=== PATIENT | female | born 1995 | race Caucasian/White ===

== ENCOUNTER 2018-02-16 01:58 | Emergency (ER) | payer BC ==
[~2018-02-16] VITALS: Ht 162.6 cm; Wt 56.4 kg
[2018-02-16 02:00] VITALS: BP 120/81
[2018-02-16] MEDS ORDERED: PREN-3 PO (02:08)
[2018-02-16 02:41] LABS: BASOPHILS # (AUTO) 0.05 x10^3/uL (0-0.1); BASOPHILS % (AUTO) 1 % (0-1); EOSINOPHILS # (AUTO) 0.08 x10^3/uL (0-0.4); EOSINOPHILS % (AUTO) 1 % (1-7); LYMPHOCYTES # (AUTO) 2.02 x10^3/uL (1-3.4); LYMPHOCYTES % (AUTO) 24 % (22-44); MD NO; MEAN CORPUSCULAR HEMOGLOBIN 30.8 pg (27.0-34.8); MEAN CORPUSCULAR VOLUME 90.7 fL (80-100); MEAN PLATELET VOLUME 7.1 fL (7.4-10.4); MONOCYTES # (AUTO) 0.66 x10^3/uL (0.2-0.8); MONOCYTES % (AUTO) 8 % (2-9); NEUTROPHILS # (AUTO) 5.53 x10^3/uL (1.8-6.8); NEUTROPHILS % (AUTO) 66 % (42-75); PLATELET COUNT 270 x10^3/uL (130-400); RED BLOOD COUNT 4.05 x10^6/uL (3.82-5.3); RED CELL DISTRIBUTION WIDTH 13.4 % (9.6-15.2)
[2018-02-16 02:50] LABS: ANION GAP 9 mmol/L (5-15); CALCIUM 8.9 mg/dL (8.5-10.1); CHLORIDE 107 mmol/L (98-107); CREATININE 0.63 mg/dL (0.55-1.02)
[2018-02-16 02:58] LABS: MICROSCOPIC AUTO
[2018-02-16 02:59] LABS: CULTURE INDICATED? YES
== END 2018-02-16 04:01 | disposition home or self-care (01) ==
LOC: ED 03:55
DX: O26.892 Other specified pregnancy related conditions, second trimester (principal); R10.30 Lower abdominal pain, unspecified; R10.2 Pelvic and perineal pain; Z3A.19 19 weeks gestation of pregnancy
CPT/HCPCS: 36415; 76815; 80048; 81001; 82040; 84702; 85025; 87086; 99285

== ENCOUNTER 2018-02-25 21:36 | Emergency (ER) | payer BC ==
[~2018-02-25] VITALS: Ht 162.6 cm; Wt 57.0 kg
[~2018-02-25 21:36] MED LIST: PREN-3 PO
[2018-02-25] MEDS ORDERED: SODIUM CHLORIDE 0.9% 1,000ML IVBOLUS ONE (22:00)
[2018-02-25 22:06] LABS: BASOPHILS # (AUTO) 0.03 x10^3/uL (0-0.1); BASOPHILS % (AUTO) 0 % (0-1); EOSINOPHILS # (AUTO) 0.07 x10^3/uL (0-0.4); EOSINOPHILS % (AUTO) 1 % (1-7); LYMPHOCYTES # (AUTO) 2.16 x10^3/uL (1-3.4); LYMPHOCYTES % (AUTO) 27 % (22-44); MD NO; MEAN CORPUSCULAR HEMOGLOBIN 31.4 pg (27.0-34.8); MEAN CORPUSCULAR HGB CONC 34.5 g/dL (32.4-35.8); MEAN CORPUSCULAR VOLUME 90.9 fL (80-100); MEAN PLATELET VOLUME 7.2 fL (7.4-10.4); MONOCYTES # (AUTO) 0.75 x10^3/uL (0.2-0.8); MONOCYTES % (AUTO) 9 % (2-9); NEUTROPHILS # (AUTO) 5.11 x10^3/uL (1.8-6.8); NEUTROPHILS % (AUTO) 63 % (42-75); PLATELET COUNT 285 x10^3/uL (130-400); RED BLOOD COUNT 3.69 x10^6/uL (3.82-5.3); RED CELL DISTRIBUTION WIDTH 13.7 % (9.6-15.2)
[2018-02-25 22:18] LABS: ALANINE AMINOTRANSFERASE 22 U/L (12-78); ANION GAP 8 mmol/L (5-15); CALCIUM 8.9 mg/dL (8.5-10.1); CHLORIDE 110 mmol/L (98-107); CREATININE 0.53 mg/dL (0.55-1.02)
[2018-02-25 22:20] LABS: ALKALINE PHOSPHATASE 46 U/L (45-117); BILIRUBIN,TOTAL 0.2 mg/dL (0.2-1.0); TOTAL PROTEIN 6.4 g/dL (6.4-8.2)
[2018-02-25 23:44] VITALS: BP 116/71
== END 2018-02-25 23:46 | disposition home or self-care (01) ==
LOC: ED 22:27
DX: O26.892 Other specified pregnancy related conditions, second trimester (principal); R53.1 Weakness; Z3A.20 20 weeks gestation of pregnancy
CPT/HCPCS: 36415; 80053; 85025; 93005; 99285

== ENCOUNTER 2018-03-30 16:49 | Outpatient (CLI) | payer BC ==
[~2018-03-30] VITALS: Ht 160 cm; Wt 59.1 kg
[2018-03-30 17:04] VITALS: BP 125/72
[2018-03-30 17:56] LABS: BASOPHILS # (AUTO) 0.04 x10^3/uL (0-0.1); BASOPHILS % (AUTO) 1 % (0-1); EOSINOPHILS # (AUTO) 0.07 x10^3/uL (0-0.4); EOSINOPHILS % (AUTO) 1 % (1-7); LYMPHOCYTES # (AUTO) 1.52 x10^3/uL (1-3.4); LYMPHOCYTES % (AUTO) 19 % (22-44); MD NO; MEAN CORPUSCULAR HEMOGLOBIN 31.9 pg (27.0-34.8); MEAN CORPUSCULAR HGB CONC 34.8 g/dL (32.4-35.8); MEAN CORPUSCULAR VOLUME 91.6 fL (80-100); MEAN PLATELET VOLUME 6.9 fL (7.4-10.4); MONOCYTES % (AUTO) 9 % (2-9); NEUTROPHILS % (AUTO) 71 % (42-75); PLATELET COUNT 267 x10^3/uL (130-400)
[2018-03-30 18:09] LABS: ALANINE AMINOTRANSFERASE 19 U/L (12-78); ALBUMIN 2.8 g/dL (3.4-5.0); ANION GAP 6 mmol/L (5-15); CALCIUM 8.9 mg/dL (8.5-10.1); CHLORIDE 107 mmol/L (98-107); CREATININE 0.61 mg/dL (0.55-1.02)
[2018-03-30 18:13] LABS: ALKALINE PHOSPHATASE 53 U/L (45-117); BILIRUBIN,TOTAL 0.6 mg/dL (0.2-1.0); TOTAL PROTEIN 6.5 g/dL (6.4-8.2)
[2018-03-30 18:25] LABS: MICROSCOPIC INDICATED
== END 2018-03-30 19:50 | disposition home or self-care (01) ==
LOC: LDOP 16:49
PROVIDERS: ATTEND Obstetrics & Gynecology
DX: O26.892 Other specified pregnancy related conditions, second trimester (principal); M54.5 Low back pain; Z3A.24 24 weeks gestation of pregnancy
CPT/HCPCS: 36415; 59025; 80053; 81001; 85025; 87086; 99211; G0463

== ENCOUNTER 2018-06-02 19:24 | Outpatient (CLI) | payer BC, OTHER ==
[~2018-06-02] VITALS: Ht 162.6 cm; Wt 63.0 kg
[2018-06-02 19:41] LABS: MICROSCOPIC NOT IND
== END 2018-06-02 20:15 | disposition home or self-care (01) ==
LOC: LDOP 19:24
PROVIDERS: ATTEND Obstetrics & Gynecology
DX: O46.93 Antepartum hemorrhage, unspecified, third trimester (principal); Z3A.33 33 weeks gestation of pregnancy
CPT/HCPCS: 59025; 81003; 87086; 99211; G0463

== ENCOUNTER 2018-06-12 17:42 | Emergency (ER) | payer OTHER ==
[~2018-06-12] VITALS: Ht 160 cm; Wt 66.0 kg
[2018-06-12 19:17] LABS: BASOPHILS # (AUTO) 0.04 x10^3/uL (0-0.1); BASOPHILS % (AUTO) 1 % (0-1); EOSINOPHILS # (AUTO) 0.06 x10^3/uL (0-0.4); EOSINOPHILS % (AUTO) 1 % (1-7); LYMPHOCYTES # (AUTO) 1.59 x10^3/uL (1-3.4); LYMPHOCYTES % (AUTO) 25 % (22-44); MD NO; MEAN CORPUSCULAR HEMOGLOBIN 30.7 pg (27.0-34.8); MEAN CORPUSCULAR HGB CONC 33.7 g/dL (32.4-35.8); MEAN CORPUSCULAR VOLUME 91.1 fL (80-100); MEAN PLATELET VOLUME 6.8 fL (7.4-10.4); MONOCYTES # (AUTO) 0.68 x10^3/uL (0.2-0.8); MONOCYTES % (AUTO) 11 % (2-9); NEUTROPHILS # (AUTO) 4.06 x10^3/uL (1.8-6.8); NEUTROPHILS % (AUTO) 63 % (42-75); PLATELET COUNT 232 x10^3/uL (130-400); RED BLOOD COUNT 3.46 x10^6/uL (3.82-5.3); RED CELL DISTRIBUTION WIDTH 14.5 % (9.6-15.2)
[2018-06-12 19:26] LABS: ALANINE AMINOTRANSFERASE 15 U/L (12-78); ALBUMIN 2.5 g/dL (3.4-5.0); ANION GAP 10 mmol/L (5-15); CALCIUM 7.7 mg/dL (8.5-10.1); CHLORIDE 109 mmol/L (98-107); CREATININE 0.72 mg/dL (0.55-1.02)
[2018-06-12 19:30] LABS: ALKALINE PHOSPHATASE 91 U/L (45-117); BILIRUBIN,TOTAL 0.2 mg/dL (0.2-1.0); TOTAL PROTEIN 6.3 g/dL (6.4-8.2); TROPONIN I < 0.015 ng/mL (0.000-0.045)
[2018-06-12] MEDS ORDERED: ONDANSETRON ODT 4 MG PO ONE (19:30)
[2018-06-12] MEDS ORDERED: ONDANSETRON ODT 4 MG ONE (19:31)
[2018-06-12 21:04] VITALS: BP 115/74
== END 2018-06-12 21:06 | disposition home or self-care (01) ==
LOC: ED 19:25
DX: O26.893 Other specified pregnancy related conditions, third trimester (principal); R07.89 Other chest pain; R06.00 Dyspnea, unspecified; Z3A.35 35 weeks gestation of pregnancy
CPT/HCPCS: 36415; 71045; 80053; 83880; 84484; 85025; 85379; 93005; 93970; 99285; Q0162

== ENCOUNTER 2018-07-14 23:35 | Inpatient (IN) | payer OTHER ==
[~2018-07-14] VITALS: Ht 162.6 cm; Wt 65.0 kg
[2018-07-15 00:25] VITALS: BP 116/76
[2018-07-15] MEDS ORDERED: MISOPROSTOL 200 MCG TABLET ONE (00:37)
[2018-07-15] MEDS ORDERED: D5%-LACTATED RINGERS 1,000 ML IV SCH (01:03)
[2018-07-15] MEDS ORDERED: LACTATED RINGERS 1,000 ML IV SCH (01:03)
[2018-07-15] MEDS ORDERED: OXYTOCIN 30U/ 0.9% NaCL 500ML 500 ML IV ONE (01:03)
[2018-07-15] MEDS ORDERED: OXYTOCIN 30U/ 0.9% NaCL 500ML 0 ML ONE (01:15)
[2018-07-15] MEDS ORDERED: FENTANYL PF 100 MCG/2ML ONE (01:17)
[2018-07-15] MEDS ORDERED: FENTANYL/BUPIV./NS/PF 250 ML EPIDCONT SCH (01:19)
[2018-07-15] MEDS ORDERED: FENTANYL PF 100 MCG/2ML IVPush PRN (01:30)
[2018-07-15] MEDS ORDERED: ONDANSETRON 2MG/ML, 2ML IVPush PRN (01:30)
[2018-07-15] MEDS ORDERED: CALCIUM CARBONATE 500 MG TAB.CHEW PO PRN (01:30)
[2018-07-15] MEDS ORDERED: FENTANYL PF 100 MCG/2ML IV PRN (01:30)
[2018-07-15] MEDS ORDERED: FENTANYL PF 500 MCG, BUPIVACAINE/PF 0.5%, 30ML 62.5 ML in SODIUM CHLORIDE 0.9% 177.5 ML EPIDCONT SCH (01:30)
[2018-07-15] MEDS ORDERED: LIDOCAINE 1%, 50ML INFIL ONE (01:30)
[2018-07-15 01:36] LABS: BASOPHILS # (AUTO) 0.03 x10^3/uL (0-0.1); BASOPHILS % (AUTO) 1 % (0-1); EOSINOPHILS # (AUTO) 0.04 x10^3/uL (0-0.4); EOSINOPHILS % (AUTO) 1 % (1-7); LYMPHOCYTES # (AUTO) 1.73 x10^3/uL (1-3.4); LYMPHOCYTES % (AUTO) 23 % (22-44); MD NO; MEAN CORPUSCULAR HEMOGLOBIN 30.2 pg (27.0-34.8); MEAN CORPUSCULAR HGB CONC 33.9 g/dL (32.4-35.8); MEAN PLATELET VOLUME 6.9 fL (7.4-10.4); MONOCYTES # (AUTO) 0.72 x10^3/uL (0.2-0.8); MONOCYTES % (AUTO) 10 % (2-9); NEUTROPHILS # (AUTO) 4.99 x10^3/uL (1.8-6.8); NEUTROPHILS % (AUTO) 66 % (42-75); PLATELET COUNT 215 x10^3/uL (130-400); RED BLOOD COUNT 3.44 x10^6/uL (3.82-5.3); RED CELL DISTRIBUTION WIDTH 14.6 % (9.6-15.2)
[2018-07-15 08:36] VITALS: BP 126/87
== END 2018-07-15 10:00 | disposition home or self-care (01) | DRG 833 ==
LOC: LDOP 23:35 → LDIP 07-15 01:04
PROVIDERS: ADMIT Obstetrics & Gynecology; ATTEND Obstetrics & Gynecology
DX: O26.893 Other specified pregnancy related conditions, third trimester (principal); E16.2 Hypoglycemia, unspecified; Z3A.39 39 weeks gestation of pregnancy
CPT/HCPCS: 36415; 85025; 86850; 86900; G0378; J3010; J7120

== ENCOUNTER 2018-07-16 05:32 | Inpatient (IN) | payer OTHER ==
[~2018-07-16] VITALS: Ht 162.6 cm; Wt 65.0 kg
[2018-07-16] MEDS ORDERED: PROMETHAZINE 25 MG/ML, 1ML ONE (06:00)
[2018-07-16] MEDS ORDERED: PROMETHAZINE 25 MG/ML, 1ML IM ONE (06:00)
[2018-07-16] MEDS ORDERED: MEPERIDINE/PF 50 MG/ML ONE (06:00)
[2018-07-16] MEDS: MEPERIDINE/PF 50 MG/ML IM PRN (06:06)
[2018-07-16 06:09] VITALS: BP 140/99
[2018-07-16] MEDS ORDERED: OXYTOCIN 30U/ 0.9% NaCL 500ML 500 ML IV ONE (07:17)
[2018-07-16] MEDS ORDERED: D5%-LACTATED RINGERS 1,000 ML IV SCH (07:17)
[2018-07-16] MEDS ORDERED: NEWBORN KIT ONE (07:27)
[2018-07-16] MEDS ORDERED: OXYTOCIN 30U/ 0.9% NaCL 500ML 500 ML ONE (07:28)
[2018-07-16] MEDS ORDERED: TERBUTALINE 1 MG/ML, 1ML IVPush PRN (07:30)
[2018-07-16] MEDS ORDERED: ONDANSETRON 2MG/ML, 2ML IVPush PRN (07:30)
[2018-07-16] MEDS ORDERED: FENTANYL PF 100 MCG/2ML IV PRN (07:30)
[2018-07-16] MEDS ORDERED: FENTANYL PF 100 MCG/2ML IVPush PRN (07:30)
[2018-07-16 07:43] LABS: BASOPHILS # (AUTO) 0.04 x10^3/uL (0-0.1); BASOPHILS % (AUTO) 1 % (0-1); EOSINOPHILS # (AUTO) 0.03 x10^3/uL (0-0.4); EOSINOPHILS % (AUTO) 0 % (1-7); LYMPHOCYTES # (AUTO) 1.54 x10^3/uL (1-3.4); LYMPHOCYTES % (AUTO) 24 % (22-44); MD NO; MEAN CORPUSCULAR HEMOGLOBIN 29.6 pg (27.0-34.8); MEAN CORPUSCULAR HGB CONC 33.9 g/dL (32.4-35.8); MEAN CORPUSCULAR VOLUME 87.3 fL (80-100); MEAN PLATELET VOLUME 7.1 fL (7.4-10.4); MONOCYTES # (AUTO) 0.49 x10^3/uL (0.2-0.8); MONOCYTES % (AUTO) 8 % (2-9); NEUTROPHILS # (AUTO) 4.35 x10^3/uL (1.8-6.8); NEUTROPHILS % (AUTO) 67 % (42-75); PLATELET COUNT 190 x10^3/uL (130-400); RED BLOOD COUNT 3.63 x10^6/uL (3.82-5.3); RED CELL DISTRIBUTION WIDTH 14.5 % (9.6-15.2)
[2018-07-16] MEDS: LACTATED RINGERS 1,000 ML IV SCH ×5 (07:46→20:09)
[2018-07-16] MEDS ORDERED: FENTANYL/BUPIV./NS/PF 250 ML EPIDCONT SCH ×2 (08:12→09:32)
[2018-07-16 08:27] VITALS: BP 126/84
[2018-07-16] MEDS ORDERED: FENTANYL PF 500 MCG, BUPIVACAINE/PF 0.5%, 30ML 62.5 ML in SODIUM CHLORIDE 0.9% 177.5 ML EPIDCONT SCH (09:00)
[2018-07-16] MEDS ORDERED: BUPIVACAINE 0.25% ONE (09:28)
[2018-07-16] MEDS ORDERED: EPHEDRINE 50 MG/ML, 1ML IVPush PRN (10:00)
[2018-07-16] MEDS ORDERED: NALOXONE 0.4 MG/ML, 1ML IVPush PRN (10:00)
[2018-07-16] MEDS ORDERED: LACTATED RINGERS 1,000 ML IVBOLUS PRN (10:00)
[2018-07-17] MEDS ORDERED: OXYTOCIN 30U/ 0.9% NaCL 500ML 500 ML ONE (00:57)
[2018-07-17] MEDS ORDERED: OXYcodone/APAP 5/325MG TABLET ONE (00:58)
[2018-07-17] MEDS ORDERED: IBUPROFEN 600 MG TABLET ONE (00:58)
[2018-07-17] MEDS ORDERED: METHYLERGONOVINE 0.2 MG/ML IM PRN (01:30)
[2018-07-17] MEDS ORDERED: MISOPROSTOL 200 MCG TABLET SL PRN (01:30)
[2018-07-17] MEDS ORDERED: CALCIUM CARBONATE 500 MG TAB.CHEW PO PRN (01:30)
[2018-07-17] MEDS ORDERED: ONDANSETRON 2MG/ML, 2ML IV PRN (01:30)
[2018-07-17] MEDS ORDERED: OXYcodone IR 5MG TABLET PO PRN (01:30)
[2018-07-17] MEDS ORDERED: OXYcodone/APAP 5/325MG TABLET PO PRN (01:30)
[2018-07-17] MEDS: LACTATED RINGERS 1,000 ML IV SCH ×3 (01:32→17:32)
[2018-07-17] MEDS: OXYTOCIN 30U/ 0.9% NaCL 500ML 500 ML IV SCH ×3 (02:00→11:18)
[2018-07-17 03:10] VITALS: BP 111/74
[2018-07-17] MEDS: MEPERIDINE/PF 50 MG/ML IM PRN (04:00)
[2018-07-17 07:20] VITALS: BP 122/78
[2018-07-17] MEDS: PRENATAL VIT/IRON/FA 1 EACH TABLET PO SCH (07:28)
[2018-07-17] MEDS: DOCUSATE 100 MG CAPSULE PO PRN ×2 (07:32→19:54)
[2018-07-17] MEDS: IBUPROFEN 600 MG TABLET PO PRN ×3 (07:32→19:54)
[2018-07-17 08:29] LABS: MEAN CORPUSCULAR HEMOGLOBIN 29.5 pg (27.0-34.8); MEAN CORPUSCULAR HGB CONC 33.5 g/dL (32.4-35.8); MEAN CORPUSCULAR VOLUME 87.9 fL (80-100); MEAN PLATELET VOLUME 7.5 fL (7.4-10.4); PLATELET COUNT 200 x10^3/uL (130-400); RED BLOOD COUNT 2.99 x10^6/uL (3.82-5.3); RED CELL DISTRIBUTION WIDTH 14.2 % (9.6-15.2)
[2018-07-17 09:01] LABS: MD YES
[2018-07-17 09:07] LABS: <RBC MORPHOLOGY> NORMAL; BAND#(MANUAL) 1.18 x10^3/uL; BANDS%(MANUAL) 8 % (0-7); EOS#(MANUAL) 0.15 x10^3/uL (0.0-0.4); EOS% (MANUAL) 1 % (1-7); LYMPH#(MANUAL) 1.47 x10^3/uL (1-3.4); LYMPHS% (MANUAL) 10 % (22-44); MONOS#(MANUAL) 1.03 x10^3/uL (0.3-2.7); MONOS% (MANUAL) 7 % (2-9); SEG#(MANUAL) 10.88 x10^3/uL (1.8-6.8); SEGS% (MANUAL) 74 % (42-75)
[2018-07-17 09:08] LABS: <PLATELET ESTIMATE> ADEQUATE; <PLT MORPHOLOGY> NORMAL PLT MORPH
[2018-07-17] MEDS ORDERED: HYDROCORTISONE CRM 2.5%, 20GM TP PRN (11:00)
[2018-07-17 12:22] VITALS: BP 115/76
[2018-07-17 16:43] VITALS: BP 115/76
[2018-07-17 19:45] VITALS: BP 129/76
[2018-07-18] MEDS: IBUPROFEN 600 MG TABLET PO PRN ×2 (02:25→10:31)
[2018-07-18 07:25] VITALS: BP 118/80
[2018-07-18] MEDS: OXYTOCIN 30U/ 0.9% NaCL 500ML 500 ML IV SCH ×2 (10:05→17:10)
[2018-07-18] MEDS ORDERED: DOCU-131 PO (10:14)
[2018-07-18] MEDS ORDERED: IBUP-1222 PO (10:14)
[2018-07-18] MEDS ORDERED: FERR325T23 PO (10:19)
[2018-07-18] MEDS: DOCUSATE 100 MG CAPSULE PO PRN (10:31)
[2018-07-18] MEDS: PRENATAL VIT/IRON/FA 1 EACH TABLET PO SCH (10:31)
[2018-07-18] MEDS ORDERED: LIDOCAINE-MPF 1%, 2ML INFIL ONE (14:00)
== END 2018-07-18 17:28 | disposition home or self-care (01) | DRG 768 ==
LOC: LDOP 05:32 → LDIP 07:17 → UNDOADMIN 07:23 → LDIP 07:23 → 2NW 07-17 02:49
PROVIDERS: ADMIT Obstetrics & Gynecology; ATTEND Obstetrics & Gynecology
PROC: 10E0XZZ Delivery of Products of Conception, External Approach (ICD-10-PCS; principal; 2018-07-16)
PROC: 0DQR0ZZ Repair Anal Sphincter, Open Approach (ICD-10-PCS; 2018-07-16)
PROC: 10907ZC Drainage of Amniotic Fluid, Therapeutic from Products of Conception, Via Natural or Artificial Opening (ICD-10-PCS; 2018-07-16)
PROC: 3E0R3BZ Introduction of Anesthetic Agent into Spinal Canal, Percutaneous Approach (ICD-10-PCS; 2018-07-16)
PROC: 00HU33Z Insertion of Infusion Device into Spinal Canal, Percutaneous Approach (ICD-10-PCS; 2018-07-16)
DX: O99.02 Anemia complicating childbirth (principal); Z37.0 Single live birth; O70.20 Third degree perineal laceration during delivery, unspecified; O71.89 Other specified obstetric trauma; Z3A.39 39 weeks gestation of pregnancy; O99.344 Other mental disorders complicating childbirth; F31.9 Bipolar disorder, unspecified; D64.9 Anemia, unspecified; F41.9 Anxiety disorder, unspecified; Z80.3 Family history of malignant neoplasm of breast; Z82.3 Family history of stroke
CPT/HCPCS: 36415; 74021; J7121; 85025; 86850; 86900; G0378; J2175; J2550; J2590; J7120